=== PATIENT | male | born 1995 | race African-American/Black ===

== ENCOUNTER 2020-08-04 15:58 | Emergency (ER) | payer SELFPAY ==
[2020-08-04 16:16] VITALS: BP 124/71; PULSE 78; TEMP 98.1; BMI 39.9
== END 2020-08-04 17:23 | disposition home or self-care (01) ==
LOC: JER 15:58
DX: U07.1 COVID-19 (principal); J06.9 Acute upper respiratory infection, unspecified
CPT/HCPCS: 99284-25; C9803; U0003; U0005